=== PATIENT | female | born 1990 | race African-American/Black ===

== ENCOUNTER 2017-11-02 16:50 | Emergency (ER) | payer SELFPAY ==
[2017-11-02 18:32] LABS: BHCG - Serum POSITIVE (NEGATIVE); Pregs Control Background? CLEAR/WHITE (CLR/WHITE); Pregs Control Bar Appear? YES (CONTROL BAR)
[2017-11-02 18:49] LABS: Bilirubin Negative (Negative); Blood, Urine Negative (Negative); Clarity CLEAR (Clear); Glucose, Urine (Dipstick) Negative (Negative); Leukocyte Negative (Negative); Nitrite Negative (Negative); Protein, Urine (Dipstick) Negative (Neg-Trace); Specific Gravity, Urine 1.016 (1.002-1.036)
--- NOTE | 2017-11-02 22:14 | ULT ---
FIRST TRIMESTER OBSTETRICAL ULTRASOUND: 11/02/17 INDICATION: Vaginal spotting with positive HCG of 18,568. FINDINGS: There is an intrauterine gestational sac with pole identified. The crown-rump length was 0.27 c m given estimated gestational age of 5 weeks, 6 days. There is cardiac activity associated with the f etal pole of 96 bpm. The estimated date based on the ultrasound measurements is 06/29/18 as the due d ate. The uterus measures 8.4 x 4.9 x 6.2 cm. The right ovary measures 2.5 x 1.7 x 2.2 cm. Left ovary measu res 2.6 x 2.3 x 2.6 cm. A small amount of free fluid is seen within the pelvis. IMPRESSION: Single live intrauterine gestation. POS: BETTY
== END 2017-11-02 21:39 | disposition home or self-care (01) ==
LOC: ERS 16:50
DX: O20.0 Threatened abortion (principal); O99.341 Other mental disorders complicating pregnancy, first trimester; F31.9 Bipolar disorder, unspecified; O99.89 Other specified diseases and conditions complicating pregnancy, childbirth and the puerperium; I10 Essential (primary) hypertension; Z3A.01 Less than 8 weeks gestation of pregnancy
CPT/HCPCS: 36415; 76856; 81003; 84702; 84703; 86900; 86901

== ENCOUNTER 2018-01-09 03:43 | Emergency (ER) | payer MEDICAID, OTHER | END 2018-01-09 04:10 | disposition home or self-care (01) | LOC: ERS 03:43 | DX: O99.612 Diseases of the digestive system complicating pregnancy, second trimester (principal); K00.7 Teething syndrome; O99.012 Anemia complicating pregnancy, second trimester; I10 Essential (primary) hypertension; O99.342 Other mental disorders complicating pregnancy, second trimester; F31.9 Bipolar disorder, unspecified; Z3A.15 15 weeks gestation of pregnancy | CPT/HCPCS: 99282 ==

== ENCOUNTER 2023-09-20 16:49 | Emergency (ER) | payer SELFPAY ==
[2023-09-20] MEDS ORDERED: Ketorolac Tromethamine 30 MG (1 mL) VIAL ONE (17:44)
[2023-09-20] MEDS ORDERED: Metoclopramide HCl 10 MG (2 mL) VIAL ONE (17:45)
[2023-09-20 18:42] LABS: SARS-CoV-2 NAA Rapid Test Not Detected (NotDetected)
== END 2023-09-20 18:53 | disposition home or self-care (01) ==
LOC: ERS 16:49
DX: B34.9 Viral infection, unspecified (principal); Z55.6 Problems related to health literacy
CPT/HCPCS: 96361; 96374; 96375; J1885; J2765

== ENCOUNTER → 2024-05-26 | Emergency (ER) | payer SELFPAY ==
[~2024-05-26] MED LIST: Ibuprofen 200 MG TAB ONE
== END ==
LOC: ERS 13:09
DX: Z53.21 Procedure and treatment not carried out due to patient leaving prior to being seen by health care provider (principal)